=== PATIENT | male | born 1945 | race Caucasian/White ===

== ENCOUNTER 2018-04-27 11:23 | Observation (INO) | payer OTHER ==
--- NOTE | 2018-04-26 17:28 | GHP ---
DATE OF ADMISSION: 04/27/2018 ADMISSION DIAGNOSIS: Prostate cancer. This is a 72-year-old gentleman who has had prostate cancer. He has had a Stephon score 9 in 7 of the cores. Largest core percentage positive biopsy was 90%. He has had minimal lower urinary tract symptoms. He has had no weight loss. He has had no bone pain. He has had a bone scan and a CAT scan that revealed no metastasis. He has had some erectile dysfunction in the past. We have discussed with him that he has stage T2c disease, could be stage T3, and we have outlined options of therapy as being radical surgery, androgen deprivation therapy, radiation, and some combination. At the present time, he has been on androgen deprivation therapy and has elected to undergo radical prostatectomy with planned adjuvant IMRT after treatment. He has a World [employer] Organization, group 5 prostate cancer and his PSA originally was 18.5 in June 2017, and then at 11/28/17, it was at 13.53. He has received Lupron and most recently as 04/07/18, his PSA is 0.18. He has had a prostate volume as of 04/18/18, at 15.1 g, and he had an MRI that showed BIRADS 5 and a PSA density of 0.74. PHYSICAL EXAM ON ADMISSION: VITAL SIGNS: Stable. CHEST: Clear. HEART: Regular rate and rhythm. ABDOMEN: Normal. No organomegaly, rebound, or guarding. LOWER EXTREMITIES: Normal. RECTAL: Reveals that he has a nodule in the right lobe of the prostate, consistently hard, and does not appear to be fixed. He has had a recent ultrasound of the prostate after undergoing androgen deprivation therapy and there is no fixation to the rectum. It appears to have a nice plane of fat, between rectum and prostate and the margins look clear. Seminal vesicles appear to be unobstructed and the bladder neck is narrow. At the present time, he is admitted for robotic assisted radical prostatectomy. Indications, complications, and options discussed in detail, and he is to undergo the above procedure. /[id number]/MODL MTDD
--- NOTE | 2018-04-27 07:04 | PDHPUP ---
History & Physical Update H&P update statement: This history and physical update is based on an assessment of the patient which was completed after admission or registration (within 24 hours), but prior to the surgery/procedure. H&P update: H&P reviewed & patient examined, no change in patient's condition since H&P completed
[2018-04-27] MEDS ORDERED: ceFAZolin 2 GM/DEXTROSE 100 ML IV ONE (11:40)
[2018-04-27] MEDS ORDERED: LIDOCAINE 1% 2 ML INJ ID PRN (11:41)
[2018-04-27] MEDS ORDERED: LR 1,000 ML IV ONE (11:41)
[2018-04-27 12:26] LABS: PLATELET COUNT 175 10^3/uL (150-400)
[2018-04-27] MEDS ORDERED: MIDAZOLAM 2 MG/2 ML VIAL ONE (13:00)
[2018-04-27] MEDS ORDERED: PROPOFOL/EMULSION 500 MG/50 ML BOTTLE IV ONE (13:02)
[2018-04-27] MEDS ORDERED: fentaNYL 250 MCG/5 ML INJ ONE (13:02)
[2018-04-27] MEDS ORDERED: MIDAZOLAM 2 MG/2 ML VIAL IVP ONE (13:09)
--- NOTE | 2018-04-27 13:12 | PDANEPAE ---
ANE History of Present Illness 72 year old male for robot assisted prostatectomy. ANE Past Medical History - Pulmonary History Hx Oxygen in Use at Home: No Hx Sleep Apnea: No Sleep Apnea Screening Result - Last Documented: Positive - Endocrine History Hx Diabetes: No - Chronic Pain History Chronic Pain: No ANE Review of Systems Review of systems is: negative Review of Systems: ANE Patient History - Allergies Allergies/Adverse Reactions: No Known Allergies Allergy (Verified 04/21/18 14:42) - Home Medications Home Medications: Ascorbic Acid [Vitamin C 500 mg (*)] 500 mg PO DAILY 04/21/18 [Last Taken 2 Days Ago ~04/25/18] Cholecalciferol (Vitamin D3) [Vitamin D3] 5,000 unit PO DAILY 04/21/18 [Last Taken 2 Days Ago ~04/25/18] Cyanocobalamin (Vitamin B-12) [Vitamin B-12] 1,000 mcg PO DAILY 04/21/18 [Last Taken 2 Days Ago ~04/25/18] Multivitamins [Multivitamin (*)] 1 each PO DAILY 04/21/18 [Last Taken 2 Days Ago ~04/25/18] Vitamin E Acetate [VITAMIN E] 400 unit PO DAILY 04/21/18 [Last Taken 2 Days Ago ~04/25/18] - NPO status NPO Since - Liquids (Date): 04/26/18 NPO Since - Liquids (Time): 23:00 NPO Since - Solids (Date): 04/26/18 NPO Since - Solids (Time): 19:00 - Smoking Hx Smoking Status: Never smoked ANE Labs/Vital Signs - Labs Result Diagrams: 04/27/18 13:13 - Vital Signs Blood Pressure: 149/83 Heart Rate: 80 Respiratory Rate: 18 O2 Sat (%): 95 Height: 165.1 cm Weight: 69.853 kg ANE Physical Exam - Airway Neck exam: FROM Mallampati Score: Class 2 Mouth exam: normal dental/mouth exam - Pulmonary Pulmonary: no respiratory distress - Cardiovascular Cardiovascular: regular rate and rhythym - ASA Status ASA Status: I ANE Anesthesia Plan Anesthesia Plan: general endotracheal anesthesia
[2018-04-27] MEDS ORDERED: BUPIVACAINE 0.5% 30 ML SDV ONE (13:21)
[2018-04-27] MEDS ORDERED: ePHEDrine SULFATE 25 MG/5 ML SYR ONE (13:43)
[2018-04-27] MEDS ORDERED: DEXAMETHASONE 4 MG/ML VIAL ONE (13:48)
[2018-04-27] MEDS ORDERED: ONDANSETRON 4 MG/2 ML VIAL ONE (13:48)
[2018-04-27] MEDS ORDERED: ROCURONIUM 100 MG/10 ML VIAL ONE (13:50)
[2018-04-27] MEDS ORDERED: ROCURONIUM 50 MG/5 ML VIAL ONE (13:50)
[2018-04-27] MEDS ORDERED: LIDOCAINE 2% 2 ML INJ ONE (13:51)
[2018-04-27] MEDS ORDERED: PROPOFOL 200 MG/20 ML VIAL ONE (14:57)
[2018-04-27] MEDS ORDERED: THROMBIN(HUM PLAS)/FIBRINOG/CA 5 ML VIAL TP ONE (15:07)
[2018-04-27] MEDS ORDERED: SURGIFLO MATRIX KIT WITH THROMBIN 8 ML TP ONE ×2 (15:28→15:31)
[2018-04-27] MEDS ORDERED: HYDROmorphONE/DILAUDID 2 MG/ML INJ ONE (15:38)
[2018-04-27] MEDS ORDERED: SUGAMMADEX SODIUM 200 MG/2 ML VIAL IVP ONE (15:38)
[2018-04-27] MEDS ORDERED: NALOXONE HCL 0.4 MG/ML INJ IVP PRN (15:58)
[2018-04-27] MEDS ORDERED: HYDROmorphONE/DILAUDID 6 MG/30 ML PCA IV PRN (15:58)
[2018-04-27] MEDS ORDERED: ZOLPIDEM TARTRATE 5 MG TAB PO PRN (16:00)
[2018-04-27] MEDS ORDERED: ONDANSETRON 4 MG/2 ML VIAL IVP PRN (16:00)
[2018-04-27] MEDS ORDERED: ONDANSETRON DISINTEGRATING 4 MG TAB PO PRN (16:00)
[2018-04-27] MEDS ORDERED: ACETAMINOPHEN 325 MG TAB PO PRN (16:00)
[2018-04-27] MEDS ORDERED: POTASSIUM Cl (KCl) 20 MEQ in 1/2 NS 1,000 ML IV SCH (16:00)
--- NOTE | 2018-04-27 16:05 | POSTOPPROG ---
Post Op Note Date of Operation: 04/27/18 (dictated) Surgeon: Dylan Broussard Recruiting Coordinator: Carlos Anesthesiologist: Srinivas Anesthesia: GET(General Endotracheal) Pre-op Diagnosis: prostate cancer Procedure: RA-RRP Inf/Abcess present in the surg proc area at time of surgery?: No EBL: 50-100 Drains: Other (PHI drain) Specimen(s): sent
--- NOTE | 2018-04-27 16:49 | GOP ---
DATE OF OPERATION: 04/27/2018 SURGEON: Dylan Broussard MD POPCORN CANDY MAKER: Rupinder Gonzalez CFA. ANESTHESIA: General anesthesia. ANESTHESIOLOGIST: Rizwana Espino MD. PREOPERATIVE DIAGNOSIS: Adenocarcinoma of the prostate. POSTOPERATIVE DIAGNOSIS: Adenocarcinoma of the prostate. PROCEDURE PERFORMED: Robotic-assisted radical prostatectomy, right pelvic lymph node dissection. FINDINGS: no gross disease outside of prostate or lymph nodes ESTIMATED BLOOD LOSS: Less than 100 mL. DESCRIPTION OF PROCEDURE: After undergoing general anesthesia, prepped and draped in the normal sterile fashion in the robotic position. We were able to put a Veress needle supraumbilically, inflate the abdomen to 15 mmHg pressure CO2, and then I placed the camera port and the three 8 mm arm ports, and the trust operations assistant 12 mm trust operations assistant port appropriately under direct vision. At that point , after docking the robot, I was able to bring the sigmoid colon out of the pelvis to identify the vas deferens on the right and left side and dissect along those where they went into the prostate, swept the rectum off the posterior part of the prostate, opening Denonvilliers fascia, and then Hem-o- loked the seminal vesicle blood vessels, and the ampulla vas deferens was divided. Then dropped the bladder down into the space of Retzius, incised the endopelvic fascia on the right and left sides. The prostatic ligaments were taken down sharply. Deep dorsal vein was ligated with two #0 Vicryl sutures and then focused attention to the bladder neck which was transected and preserved the circular fibers of the bladder neck the best way possible and then tried to make sure there was no residual prostate at the bladder neck. Then the anterior bladder neck was opened. Posterior bladder neck opened. The lateral pedicles of the prostate were handled with Hem-o-loks and then the apex of the prostate was dissected out under direct vision, appeared to be no gross prostatic tissue or cancer remaining at the apex. The rectum was intact. Then at that point, did a Drew stitch, and then did the urethrovesical anastomosis using a V-loc suture. Hemostasis was noted to be watertight. Bridged with a Sierra catheter, irrigated clear, and then he had a left hernia and a lot of the preperitoneal fat was into that space. I elected to not do his node dissection on the left side because of all of that anatomic changes. On the right side, he had several lymph nodes identified that grossly appeared to be normal and they were transected and removed. The dissection margin for the node dissection was the bifurcation of the iliac vessel going into the obturator foramen. The obturator nerve was identified and preserved from the dissection and Hem-o-loks were used for hemostasis and lymphstasis. We irrigated the bladder and it was clear, and the anastomosis was watertight. Evicel and Surgicel were used for hemostasis and then at that point, the specimen was brought out through the bag in the midline incision. The midline incision was approximated with a running 0 Vicryl and the trust operations assistant port was closed with a fascial suture closure device and skin was approximated with 4-0 Monocryl. Dermabond placed and a Isaiah-Healy drain was sewn in place with a 3-0 silk. He tolerated the procedure well. DISPOSITION: He will be admitted for postoperative care. I will discuss the issues with his partner. /[id number]/MODL MTDD
[2018-04-27] MEDS ORDERED: DIAZEPAM 5 MG/ML 1 ML SYR IVP PRN (16:50)
[2018-04-27] MEDS ORDERED: oxyCODONE IR 5 MG TAB PO PRN (16:50)
[2018-04-27] MEDS ORDERED: DEXAMETHASONE 4 MG/ML VIAL IVP PRN (16:50)
[2018-04-27] MEDS ORDERED: LR 500 ML IV PRN (16:50)
[2018-04-27] MEDS ORDERED: fentaNYL 100 MCG/2 ML INJ IVP PRN (16:50)
[2018-04-27] MEDS ORDERED: HYDROmorphONE/DILAUDID 2 MG/ML INJ IVP PRN (16:50)
[2018-04-27] MEDS ORDERED: PROMETHAZINE HCL 25 MG/ML INJ IVP PRN (16:50)
[2018-04-27] MEDS ORDERED: MEPERIDINE 25 MG/0.5 ML AMP IVP PRN (16:50)
--- NOTE | 2018-04-27 16:52 | POSTANESTH ---
Post Anesthetic Evaluation Cardiovascular Status: Normal, Stable Respiratory Status: Normal, Stable Level of Consciousness/Mental Status: Can Participate in Eval Pain Control: Adequate, Prn Tx Ordered Nausea/Vomiting Control: Adequate, Prn Tx Ordered Complications Possibly Related to Anesthesia: None Noted (Seen in PACU and doing well, no complaints or concerns)
[2018-04-27] MEDS: HYDROCODONE/APAP 5/325 TAB PO PRN (22:16)
[2018-04-28] MEDS ORDERED: D5W LR 1,000 ML IV SCH (01:00)
[2018-04-28] MEDS: HYDROCODONE/APAP 5/325 TAB PO PRN ×3 (02:30→10:53)
[2018-04-28 05:16] LABS: PLATELET COUNT 165 10^3/uL (150-400)
--- NOTE | 2018-04-28 07:33 | SOAPPROG ---
SOAP Progress Note Assessment/Plan: Assessment: Prostate cancer Acute POD #1, doing well, path pending Plan: DC home later 04/28/18 07:31 Subjective: doing well, wants DC Objective: Vital Signs Temp Pulse Resp BP Pulse Ox 36.4 C 81 16 135/73 H 98 04/28/18 04:00 04/28/18 04:00 04/28/18 04:00 04/28/18 04:00 04/28/18 04:00 Laboratory Results 04/28/18 04:44 04/28/18 04:44 04/27/18 04/28/18 04/29/18 05:59 05:59 05:59 Intake Total 4019 Output Total 2130 400 Balance 1889 -400 Physical Exam - Physical Exam General Appearance: alert Neck: supple Respiratory: No respiratory distress Cardiac/Chest: regular rate, rhythm Abdomen: soft Male Genitalia: normal genitalia Neuro/Psych: alert, oriented x 3 ICD10 Worksheet Patient Problems: Problems Problem Status Onset Prostate cancer Acute - ICD10 Problem Qualifiers (1) Prostate cancer
--- NOTE | 2018-04-28 09:04 | ASMTCMCOM ---
CM Note CM Note Notes: Chart reviewed for possible discharge needs. Patient is s/p radical prostatectomy with urology. 72 year old male with hx of HTN, MVD, and prostate cancer. CM to follow for needs. Plan: TBD Date Signed: 04/28/2018 09:03 AM Electronically Signed By:Shauna Duncan RN
[2018-04-28 12:50] VITALS: BP 123/71
--- NOTE | 2018-04-28 14:59 | ASDISCHSUM ---
Discharge Information Plan Status:Home with No Needs Medically Cleared to Leave:04/28/2018 Discharge Date:04/28/2018 CM D/C Disposition:Home, Routine, Self-Care ADT D/C Disposition:Home, Routine, Self-Care Projected Discharge Date:04/28/2018 Transportation at D/C:Friend Discharge Delay Reason: Follow-Up Date:04/28/2018 Discharge Slot: Final Diagnosis: Placement Information Patient Contact Information Contact Name:LIYAH Relationship:Friend Address: Work Phone: City:[place] Alternate Phone: State/[place] Code:[place] [address] Email: Financial Information Financial Class:Medicare Primary Plan Desc:MEDICARE OUTPATIENT Primary Plan Number:[id number] Secondary Plan Desc:DAVID PPO Secondary Plan Number:[id number] Assessment Information LACE LACE Length of stay for Answers: 2 days current admission Acuity / Level of Answers: No Care: Did the patient have an inpatient admission? Comorbidities - select Answers: Any tumor (including all that apply lymphoma or leukemia) Other Notes: Mitral valve disorder Score: 5 Date Signed: 04/28/2018 02:54 PM Electronically Signed By:WISAM Beck [facility] CM Progress Note CM Note CM Note Notes: Chart reviewed for possible discharge needs. Patient is s/p radical prostatectomy with urology. 72 year old male with hx of HTN, MVD, and prostate cancer. CM to follow for needs. Plan: TBD Date Signed: 04/28/2018 09:03 AM Electronically Signed By:Shauna Duncan RN Case Management Discharge Plan Note Case Management Discharge Discharge Order Complete? Answers: Yes Patient to Obtain Answers: Independently Medications Transportation Arranged Answers: Family/Friends Discharge Comments Notes: Pt is s/p a radical prostatectomy. He is discharging home today with no CM needs. Date Signed: 04/28/2018 02:56 PM Electronically Signed By:WISAM Beck Intervention Information Intervention Type:*ALIZE-Signed Date of Service:04/28/2018 12:25 PM Patient Type:Observation Staff Member:Kevin New Hours: Discipline: Severity: Comment:
--- NOTE | 2018-04-28 15:05 | GDS ---
PREOPERATIVE DIAGNOSIS: Prostate cancer. POSTOPERATIVE DIAGNOSIS: Prostate cancer. HOSPITAL COURSE: After a long discussion of the options, patient elected to have a radical prostatec vera of his prostate cancer done. This proceeded without complications. He is being discharged home in good condition with his Sierra catheter in place. He is to follow up with our office in roughly 10 days for a catheter removal. /[id number]/MODL
== END 2018-04-28 15:58 | disposition home or self-care (01) ==
LOC: F1N 11:23 → INTOOBSV 11:23 → F1N 17:32
PROVIDERS: ADMIT Specialist; ATTEND Specialist
DX: C61 Malignant neoplasm of prostate (principal); R97.20 Elevated prostate specific antigen [PSA]; I10 Essential (primary) hypertension; I34.9 Nonrheumatic mitral valve disorder, unspecified
CPT/HCPCS: 55866; J0690; J1100; J1170; J2250; J2405; J2704; J3010; J3480

== ENCOUNTER → 2018-11-03 | Outpatient (CLI) | payer OTHER | LOC: BHFA 15:30 | PROVIDERS: ATTEND Internal Medicine Interventional Cardiology | DX: I05.9 Rheumatic mitral valve disease, unspecified (principal); I10 Essential (primary) hypertension ==